=== PATIENT | male | born 1970 | race Caucasian/White ===

== ENCOUNTER 2022-08-18 17:59 | Emergency (ER) | payer MEDICARE, MEDICAID ==
[~2022-08-18] VITALS: Ht 185.4 cm; Wt 95.5 kg
[2022-08-18 18:04] VITALS: BP 174/89
[2022-08-18 18:30] LABS: BASOPHILS # (AUTO) 0.1 X10'3 (0-0.2); BASOPHILS % (AUTO) 1.1 % (0-1); EOSINOPHILS # (AUTO) 0.2 X10'3 (0-0.9); EOSINOPHILS % (AUTO) 2.5 % (0-6); HEMATOCRIT 44.5 % (42.0-52.0); HEMOGLOBIN 15.2 g/dl (14.0-17.9); LYMPHOCYTES # (AUTO) 1.8 X10'3 (1.1-4.8); LYMPHOCYTES % (AUTO) 24.5 % (21-51); MEAN CORPUSCULAR HEMOGLOBIN 32.1 PG (27.0-31.0); MEAN CORPUSCULAR HGB CONC 34.2 g/dL (33.0-36.5); MEAN CORPUSCULAR VOLUME 93.7 FL (78-98); MEAN PLATELET VOLUME 7.2 FL (7.4-10.4); MONOCYTES # (AUTO) 0.8 X10'3 (0-0.9); MONOCYTES % (AUTO) 11.1 % (2-12); NEUTROPHILS # (AUTO) 4.3 X10'3 (1.8-7.7); NEUTROPHILS % (AUTO) 60.8 % (42-75); PLATELET COUNT 283 X10'3 (140-440); RED BLOOD COUNT 4.75 X10'6 (4.70-6.10); RED CELL DISTRIBUTION WIDTH 13.4 % (11.5-14.5); WHITE BLOOD COUNT 7.1 X10'3 (4.5-11.0)
[2022-08-18 18:45] LABS: ALANINE AMINOTRANSFERASE 42 U/L (12-78); ALBUMIN 3.4 G/DL (3.4-5.0); ALBUMIN/GLOBULIN RATIO 0.9 (1.1-1.5); ALKALINE PHOSPHATASE 164 IU/L (46-116); ANION GAP 10 (8-16); ASPARTATE AMINO TRANSFERASE 28 U/L (10-37); BILIRUBIN,TOTAL 0.2 MG/DL (0.1-1.0); BLOOD UREA NITROGEN 16 MG/DL (7-18); BUN/CREATININE RATIO 16.5 (10.0-20.0); CALCIUM 9.1 MG/DL (8.5-10.1); CHLORIDE 105 MMOL/L (99-107); CREATININE 0.97 MG/DL (0.60-1.10); GLUCOSE 113 MG/DL (70-104); LIPASE 111 U/L (73-393); POTASSIUM 4.3 MMOL/L (3.5-5.1); SODIUM 142 MMOL/L (135-145); TOTAL CARBON DIOXIDE 27.3 MMOL/L (24-32); TOTAL PROTEIN 7.4 G/DL (6.4-8.2); eGFR 81 ML/MIN
== END 2022-08-18 20:31 | disposition left against medical advice (07) ==
LOC: ER 18:01
DX: R50.9 Fever, unspecified (principal); Z53.21 Procedure and treatment not carried out due to patient leaving prior to being seen by health care provider
CPT/HCPCS: 36415; 80053; 83690; 85025; 99281

== ENCOUNTER 2025-02-07 14:03 | Outpatient (CLI) | payer MEDICARE, MEDICAID ==
[2025-02-07 15:31] VITALS: PULSE 82; RESP 16; O2SAT 96
--- NOTE | 2025-02-07 15:43 | PROCEDURE NOTE - Respiratory ---
Procedure Note-Respiratory Providers to [facility] Copies To 1: HERNANDO ROJAS DO Procedure Name: This is a spirometry study dated February 07, 2025. Spirometry measurements: The forced vital capacity is borderline reduced. The FEV1 is more significantly reduced. The FEV1 ratio is also significantly reduced. All of the measured flow rates show substantial reduction. Bronchodilator was not administered as part of the study. Conclusion: This study shows significant abnormality. There is evidence for obstructive ventilatory defect in the moderate to severe category. 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 It is strongly recommended that this patient abstain from cigarette smoking. Bronchodilator therapy should be continued for this patient. We have no previous studies for comparison. Close pulmonary follow-up is recommended. JAZ COSTELLO MD Feb 07, 2025 15:43
== END 2025-02-07 23:59 | disposition home or self-care (01) ==
LOC: RT 14:03
PROVIDERS: ATTEND Family Medicine
DX: J44.9 Chronic obstructive pulmonary disease, unspecified (principal)
CPT/HCPCS: 94010; 94760